=== PATIENT | male | born 1960 | race Caucasian/White ===

== ENCOUNTER 2016-11-01 18:26 | Emergency (ER) | payer MEDICAID ==
[~2016-11-01] VITALS: Wt 62.0 kg
[~2016-11-01 18:26] MED LIST: IBUP-1542 PO; NEOM1PAC TP
--- NOTE | 2016-11-01 19:28 | ERD ---
ER Documentation Chief Complaint Date/Time DATE: 11/01/16 TIME: 19:27 Chief Complaint HERE FOR SUTURE REMOVAL ON LEFT FOREARM . HPI This 56-year-old male presents for evaluation for suture removal in his left forearm. He sustained a laceration 9 days ago. He denies restricted range of motion, fevers, weakness. ROS All systems reviewed and are negative except as per history of present illness. Medications Home Meds Active Scripts Neomycin Kathleen/Bacitrac Zn/Poly (Triple Antibiotic Ointment) 1 Each Oint.pack, 1 EACH TP DAILY for 7 Days Prov:SALBADOR PARK PA-C 10/26/16 Ibuprofen* (Motrin*) 600 Mg Tab, 600 MG PO Q6, #30 TAB Prov:SALBADOR PARK PA-C 10/26/16 Allergies Allergies: Coded Allergies: No Known Allergy (Unverified , 10/26/16) PMhx/Soc Medical and Surgical Hx: pt denies Medical Hx, pt denies Surgical Hx History of Surgery: No Anesthesia Reaction: No Hx Neurological Disorder: No Hx Respiratory Disorders: No Hx Cardiac Disorders: No Hx Psychiatric Problems: No Hx Miscellaneous Medical Probl: No Hx Alcohol Use: Yes Hx Substance Use: No Hx Tobacco Use: No Smoking Status: Never smoker Physical Exam Vitals Vital Signs Date Time Temp Pulse Resp B/P Pulse Ox O2 Delivery O2 Flow Rate FiO2 11/01/16 18:28 98.5 63 20 160/85 98 Physical Exam Const: [] Head: Atraumatic Eyes: Normal Conjunctiva ENT: Normal External Ears, Nose and Mouth. Neck: Full range of motion..~ No meningismus. Resp: Clear to auscultation bilaterally Cardio: Regular rate and rhythm, no murmurs Abd: Soft, non tender, non distended. Normal bowel sounds Skin: No petechiae or rashes Back: No midline or flank tenderness Ext: No cyanosis, or edema. There is a satisfactorily healing laceration his left forearm without erythema, warmth, restricted range of motion weakness. Neur: Awake and alert Psych: Normal Mood and Affect Procedures/MDM Sutures were removed without complications and Steri-Strips were applied. Patient is satisfactorily healing left forearm laceration without evidence of infection, tendon or neurologic deficit or neurovascular compromise. Patient will be discharged home with instructions to recheck for redness, fevers, new worsening symptoms or primary care doctor. Departure Diagnosis: Primary Impression: Encounter for removal of sutures Condition: Stable Patient Instructions: Suture Removal, No Complication Additional Instructions: Cheque otro vez con kathleen doctor primario en el proximo craig or regresa para mas o nueva simptomas. ED BELTRÁN MD Nov 01, 2016 19:28
== END 2016-11-01 19:44 | disposition home or self-care (01) ==
LOC: FTE 18:26
DX: Z48.02 Encounter for removal of sutures (principal)
CPT/HCPCS: 99281